=== PATIENT | female | born 1955 | race Caucasian/White ===

== ENCOUNTER → 2021-02-25 | Outpatient (CLI) | payer OTHER ==
[~2021-02-25] MED LIST: BIOTENE MOIST44.3 ML MM; FOLIC ACID1 MG PO; IBUPROFEN600 MG PO; LEVAQUIN250 MG PO; LEXAPRO20 MG PO; MIRALAX17 GM PO; NORCO 5-325 TA1 EACH PO; VITAMIN D2000 UNIT PO; WELLBUTRIN XL150 MG PO
== END ==
LOC: KOH-I 09:42
DX: M25.571 Pain in right ankle and joints of right foot (principal); M25.561 Pain in right knee; S82.431A Displaced oblique fracture of shaft of right fibula, initial encounter for closed fracture; R93.6 Abnormal findings on diagnostic imaging of limbs
CPT/HCPCS: 73562; 73610

== ENCOUNTER → 2021-02-28 | Outpatient (CLI) | payer OTHER | LOC: US 16:30 | DX: M79.661 Pain in right lower leg (principal) | CPT/HCPCS: 93971 ==